=== PATIENT | female | born 1990 | race Caucasian/White ===

== ENCOUNTER 2023-01-15 12:29 | Outpatient (CLI) | payer OTHER | END 2023-01-15 13:22 | disposition home or self-care (01) | LOC: NST 12:29 | PROVIDERS: ATTEND Obstetrics & Gynecology | DX: Z34.83 Encounter for supervision of other normal pregnancy, third trimester (principal) ==

== ENCOUNTER 2023-01-15 14:47 | Inpatient (IN) | payer OTHER ==
[~2023-01-15] VITALS: Ht 167.6 cm; Wt 65.3 kg
[2023-02-05] MEDS ORDERED: ZOFRAN8 MG PO (01:11)
[2023-02-05] MEDS ORDERED: PRENATAL TABLE1 EAC1 PO (01:12)
[2023-02-05] MEDS ORDERED: PEPCID AC20 MG PO (01:12)
== END 2023-02-07 14:14 | disposition home or self-care (01) | DRG 807 ==
LOC: LDR 02-05 00:56 → OB/GYN 02-05 00:56
PROVIDERS: ADMIT Obstetrics & Gynecology Maternal & Fetal Medicine; ATTEND Obstetrics & Gynecology Maternal & Fetal Medicine
PROC: 10E0XZZ Delivery of Products of Conception, External Approach (ICD-10-PCS; principal; 2023-02-05)
PROC: 0KQM0ZZ Repair Perineum Muscle, Open Approach (ICD-10-PCS; 2023-02-05)
PROC: 4A1HXCZ Monitoring of Products of Conception, Cardiac Rate, External Approach (ICD-10-PCS; 2023-02-05)
DX: O70.1 Second degree perineal laceration during delivery (principal); Z37.0 Single live birth; Z3A.39 39 weeks gestation of pregnancy; Z20.822 Contact with and (suspected) exposure to COVID-19

== ENCOUNTER 2023-01-22 12:42 | Outpatient (CLI) | payer OTHER | END 2023-01-22 13:35 | disposition home or self-care (01) | LOC: NST 12:42 | PROVIDERS: ATTEND Obstetrics & Gynecology Gynecology | DX: Z34.83 Encounter for supervision of other normal pregnancy, third trimester (principal) ==

== ENCOUNTER 2024-10-06 09:06 | Emergency (ER) | payer OTHER ==
[~2024-10-06] VITALS: Ht 167.6 cm; Wt 56.7 kg
[~2024-10-06 09:06] MED LIST: PEPCID AC20 MG PO; PRENATAL TABLE1 EAC1 PO; ZOFRAN8 MG PO
[2024-10-06] MEDS ORDERED: SERTRALINE HCL50 MG (09:33)
[2024-10-06] MEDS ORDERED: ONDANSETRON HCL 2 MG/ML VIAL IM STA (14:50)
== END 2024-10-06 12:11 | disposition home or self-care (01) ==
LOC: ER 09:08
DX: B34.9 Viral infection, unspecified (principal); Z88.0 Allergy status to penicillin; Z20.822 Contact with and (suspected) exposure to COVID-19

== ENCOUNTER 2024-10-08 14:06 | Emergency (ER) | payer OTHER ==
[~2024-10-08] VITALS: Ht 167.6 cm; Wt 56.7 kg
[~2024-10-08 14:06] MED LIST changes: +SERTRALINE HCL50 MG
[2024-10-08] MEDS ORDERED: 0.9 % SODIUM CHLORIDE 1,000 ML IV STA (16:18)
[2024-10-08 17:20] LABS: HEMATOCRIT 37.3 % (36.0-45.00); HEMOGLOBIN 12.6 g/dL (12.0-15.00); MEAN CORPUSCULAR HEMOGLOBIN 29.8 pg (27.00-32.0); MEAN CORPUSCULAR HGB CONC 33.8 g/dl (32.0-36.0); PLATELET COUNT 252 K/uL (150-450); RED BLOOD COUNT 4.24 M/uL (4.00-6.00)
[2024-10-08 17:41] LABS: CALCIUM 8.7 mg/dL (8.5-10.1); CREATININE SERUM 0.86 mg/dL (0.55-1.02); GFR 76.47; POTASSIUM 3.88 mEq/L (3.5-5.1)
[2024-10-08] MEDS ORDERED: KETOROLAC TROMETHAMINE 30 MG VIAL IV ONE (20:45)
[2024-10-08] MEDS ORDERED: ONDANSETRON HCL 2 MG/ML VIAL IV ONE (22:45)
== END 2024-10-08 22:33 | disposition home or self-care (01) ==
LOC: ER 14:09
PROVIDERS: Emergency Medicine
DX: B49 Unspecified mycosis (principal); K52.9 Noninfective gastroenteritis and colitis, unspecified; Z88.0 Allergy status to penicillin